=== PATIENT | female | born 1950 | race Caucasian/White ===

== ENCOUNTER 2022-02-20 12:01 | Inpatient (IN) | payer MEDICARE, MEDICAID ==
[~2022-02-20] VITALS: Ht 167.6 cm; Wt 57.3 kg
[2022-02-20 12:57] LABS: Basophils # (auto) 0.2 10 ^3/uL (0-0.2); Eosinophils # (auto) 0 10 ^3/uL (0-0.8); Hematocrit 34.8 % (36.0-46.0); Hemoglobin 11.4 g/dL (12.2-16.2); Lymphocytes # (auto) 1.3 10 ^3/uL (0.4-5.4); Lymphocytes % (auto) 8.3 % (10.0-50.0); Mean Corpuscular Hemoglobin 29.6 pg (28.0-32.0); Mean Corpuscular Hgb Conc. 32.8 g/dL (32.0-36.0); Mean Corpuscular Volume 90.3 fL (80.0-100.0); Monocytes % (auto) 6.4 % (0.0-12.0); Neutrophils # (auto) 13.3 10 ^3/uL (1.6-8.6); Neutrophils % (auto) 84.3 % (37.0-80.0); Red Blood Cells 3.86 10^6/uL (4.0-5.20); Red Cell Distribution Width 14.3 % (11.8-14.3); White Blood Cell 15.8 10^3/uL (4.4-10.8)
[2022-02-20 13:52] LABS: Alanine Aminotransferase 23 U/L (13-56); Alkaline Phosphatase 114 U/L (45-117); Anion Gap 12 (5-15); Aspartate Aminotransferase 21 U/L (15-37); BUN/Creatinine Ratio 15.9; Blood Urea Nitrogen 14 mg/dL (7-18); Carbon Dioxide 23 mmol/L (21-32); Chloride 104 mmol/L (98-107); GFR African American 82 mL/min; GFR Non-African American 68 mL/min; Glucose 107 mg/dL (74-106); Potassium 3.8 mmol/L (3.5-5.1); Sodium 139 mmol/L (136-145)
[2022-02-20 13:53] LABS: Albumin 3.7 g/dL (3.4-5.0); Bilirubin, Total 0.6 mg/dL (0.2-1.0); Calcium 8.4 mg/dL (8.5-10.1); Creatine Kinase IFCC 162 U/L (26-192); Total Protein 7.8 g/dL (6.4-8.2)
[2022-02-20 14:47] LABS: INR 0.95 (0.9-1.15)
[2022-02-20] MEDS ORDERED: traMADol HCL 50 MG TAB PO PRN (15:30)
[2022-02-20] MEDS ORDERED: ONDANSETRON HCL 4 MG/2 ML VIAL IV PRN (15:45)
[2022-02-20] MEDS ORDERED: DOCUSATE SOD 100 MG CAP PO PRN (15:45)
[2022-02-20] MEDS ORDERED: ACETAMINOPHEN 325 MG TAB PO PRN (15:45)
[2022-02-20] MEDS: HYDROcodone-ACET 5/325MG TAB PO PRN (15:53)
[2022-02-20 16:07] LABS: % Iron Saturation 14.7 % (15-50)
[2022-02-20 16:41] LABS: Urine Bacteria FEW /hpf (None Seen); Urine Blood 3+ /uL (Negative); Urine Specific Gravity 1.012 (1.001-1.035); Urine WBC 3 /hpf (0 - 5)
[2022-02-20] MEDS: HYDROmorphone HCL 2 MG/ML VL/or syr IV PRN ×2 (18:03→22:26)
[2022-02-20] MEDS ORDERED: cefTRIAXone 1GM/50ML D5W 50 ML IV ONE (19:45)
[2022-02-21 05:16] VITALS: BP 143/78
[2022-02-21] MEDS: HYDROcodone-ACET 5/325MG TAB PO PRN ×2 (06:37→18:16)
[2022-02-21 09:00] VITALS: BP 138/76
[2022-02-21] MEDS: HYDROmorphone HCL 2 MG/ML VL/or syr IV PRN ×2 (09:07→22:04)
[2022-02-21 14:00] VITALS: BP 159/83
[2022-02-21 17:00] VITALS: BP 157/77
[2022-02-21] MEDS ORDERED: hydrALAZINE HCL 20 MG/ML VL IV PRN (19:48)
[2022-02-21] MEDS: cefTRIAXone 1GM/50ML D5W 50 ML IV SCH (22:04)
[2022-02-21] MEDS: ATORVASTATIN 20 MG TAB PO SCH (22:04)
[2022-02-21 22:41] VITALS: BP 150/87
[2022-02-22] VITALS (14 sets, daily range): BP systolic 113–164; BP diastolic 64–104
[2022-02-22] MEDS: HYDROcodone-ACET 5/325MG TAB PO PRN ×2 (04:03→21:07)
[2022-02-22] MEDS ORDERED: BUPIVACAINE W/ EPINEPH 0.25% INJ 50ML MDV ONE (07:00)
[2022-02-22] MEDS ORDERED: TRANEXAMIC ACID 20 ML ONE (07:03)
[2022-02-22] MEDS ORDERED: KETOROLAC TROMETH 30 MG/ML 1ML VIAL ONE (07:05)
[2022-02-22] MEDS ORDERED: VANCOMYCIN HCL 1000 MG VL ONE (07:05)
[2022-02-22] MEDS ORDERED: ceFAZolin 1GM/50ML 100 ML IV ONE (07:23)
[2022-02-22] MEDS ORDERED: KETAMINE HCL 10 ML ONE (07:53)
[2022-02-22] MEDS ORDERED: MORPHINE SULF PF 5 MG/10 ML VIAL ONE (07:53)
[2022-02-22] MEDS ORDERED: fentaNYL CITRATE 100 MCG/2 ML VL ONE (07:53)
[2022-02-22] MEDS ORDERED: DexAMETHasone SOD PHOS 10MG/1ML VIAL INJ ONE (07:54)
[2022-02-22] MEDS ORDERED: PROPOFOL 10 MG/ML 20 ML IV ONE (07:54)
[2022-02-22] MEDS ORDERED: ONDANSETRON HCL 4 MG/2 ML VIAL ONE (07:54)
[2022-02-22] MEDS ORDERED: MIDAZOLAM HCL 2MG/2ML 2ml VIAL (1mg/ml) ONE (07:54)
[2022-02-22] MEDS ORDERED: GLYCOPYRROLATE 0.2 MG/ML 1ML VIAL ONE (07:54)
[2022-02-22] MEDS ORDERED: FAMOTIDINE (10MG/ML) 2ML VL IV ONE (07:58)
[2022-02-22] MEDS ORDERED: LACTATED RINGER'S 1,000 ML IV SCH (09:15)
[2022-02-22] MEDS ORDERED: ceFAZolin 1GM/50ML 50 ML IV SCH (09:15)
[2022-02-22] MEDS ORDERED: FAMOTIDINE (10MG/ML) 2ML VL IV PRN (10:45)
[2022-02-22] MEDS ORDERED: ONDANSETRON HCL 4 MG/2 ML VIAL IV PRN ×2 (10:45)
[2022-02-22] MEDS ORDERED: KETOROLAC TROMETH 30 MG/ML 1ML VIAL IV PRN (10:45)
[2022-02-22] MEDS ORDERED: NALOXONE HCL 0.4 MG/ML VIAL IV PRN (10:45)
[2022-02-22] MEDS ORDERED: KETOROLAC TROMETH 30 MG/ML 1ML VIAL IV ONE (10:45)
[2022-02-22] MEDS ORDERED: NALBUPHINE HCL 10 MG/1ml INJECTION SUBCUT PRN (10:45)
[2022-02-22] MEDS ORDERED: DexAMETHasone SOD PHOS 10MG/1ML VIAL INJ IV PRN (10:45)
[2022-02-22] MEDS ORDERED: BUPIVACAINE/DEXTROSE MPF 0.75% 2 ML AMP IT ONE (11:00)
[2022-02-22] MEDS: diphenhdrAMINE HCL 50 MG/1 ML VL IV PRN ×2 (11:07→21:08)
[2022-02-22] MEDS: ENOXAPARIN SOD 40 MG/0.4 ML SYRINGE SC SCH (13:24)
[2022-02-22] MEDS: METOPROLOL SUCCINATE XL 50 MG TAB PO SCH (13:24)
[2022-02-22] MEDS: SODIUM CHLOR 0.9% PF (SALINE LOCK) 10ML VIAL/SYR IV SCH ×2 (13:25→22:00)
[2022-02-22] MEDS: ceFAZolin 1GM/50ML 50 ML IV SCH ×2 (13:42→19:56)
[2022-02-22] MEDS: ATORVASTATIN 20 MG TAB PO SCH (21:07)
[2022-02-22] MEDS: cefTRIAXone 1GM/50ML D5W 50 ML IV SCH (21:09)
[2022-02-23] VITALS (15 sets, daily range): BP systolic 120–166; BP diastolic 61–78
[2022-02-23] MEDS: ceFAZolin 1GM/50ML 50 ML IV SCH (01:53)
[2022-02-23] MEDS: diphenhdrAMINE HCL 50 MG/1 ML VL IV PRN (01:59)
[2022-02-23] MEDS: HYDROcodone-ACET 5/325MG TAB PO PRN ×4 (02:10→21:53)
[2022-02-23] MEDS: SODIUM CHLOR 0.9% PF (SALINE LOCK) 10ML VIAL/SYR IV SCH ×3 (06:02→21:47)
[2022-02-23 09:37] LABS: Hemoglobin 8.8 g/dL (12.2-16.2)
[2022-02-23 10:00] LABS: Albumin 2.8 g/dL (3.4-5.0); Calcium 8.1 mg/dL (8.5-10.1); Potassium 3.8 mmol/L (3.5-5.1)
[2022-02-23 10:04] LABS: BUN/Creatinine Ratio 12.9; Bilirubin, Total 0.4 mg/dL (0.2-1.0); Total Protein 6.2 g/dL (6.4-8.2)
[2022-02-23] MEDS: ENOXAPARIN SOD 40 MG/0.4 ML SYRINGE SC SCH (10:44)
[2022-02-23] MEDS: METOPROLOL SUCCINATE XL 50 MG TAB PO SCH (10:45)
[2022-02-23] MEDS: cefTRIAXone 1GM/50ML D5W 50 ML IV SCH (21:47)
[2022-02-23] MEDS: ATORVASTATIN 20 MG TAB PO SCH (21:47)
[2022-02-24 05:00] VITALS: BP 151/70
[2022-02-24] MEDS: SODIUM CHLOR 0.9% PF (SALINE LOCK) 10ML VIAL/SYR IV SCH ×3 (05:30→21:27)
[2022-02-24] MEDS: HYDROcodone-ACET 5/325MG TAB PO PRN ×4 (05:44→21:27)
[2022-02-24 06:17] LABS: Hematocrit 25.2 % (36.0-46.0); Hemoglobin 8.7 g/dL (12.2-16.2)
[2022-02-24 09:00] VITALS: BP 128/62
[2022-02-24] MEDS: ENOXAPARIN SOD 40 MG/0.4 ML SYRINGE SC SCH (10:45)
[2022-02-24] MEDS: METOPROLOL SUCCINATE XL 50 MG TAB PO SCH (10:45)
[2022-02-24 13:00] VITALS: BP 148/60
[2022-02-24 16:43] VITALS: BP 134/56
[2022-02-24] MEDS ORDERED: ZOLPIDEM TARTRATE 5 MG TAB PO ONE (21:00)
[2022-02-24] MEDS: ATORVASTATIN 20 MG TAB PO SCH (21:27)
[2022-02-24] MEDS: cefTRIAXone 1GM/50ML D5W 50 ML IV SCH (21:27)
[2022-02-24 22:00] VITALS: BP 164/68
[2022-02-25] MEDS: HYDROcodone-ACET 5/325MG TAB PO PRN ×2 (04:58→11:35)
[2022-02-25 05:00] VITALS: BP 147/66
[2022-02-25 05:11] LABS: Hematocrit 24.7 % (36.0-46.0); Hemoglobin 8.6 g/dL (12.2-16.2)
[2022-02-25] MEDS: SODIUM CHLOR 0.9% PF (SALINE LOCK) 10ML VIAL/SYR IV SCH ×2 (05:33→14:18)
[2022-02-25 09:00] VITALS: BP_SYST 142; BP_SYST 167; BP_DIAS 68; BP_DIAS 75
[2022-02-25] MEDS ORDERED: RIVA10TA PO (09:23)
[2022-02-25] MEDS ORDERED: HYDR-4902 PO (09:23)
[2022-02-25] MEDS ORDERED: CIPR-173 PO (09:23)
[2022-02-25] MEDS: METOPROLOL SUCCINATE XL 50 MG TAB PO SCH (09:33)
[2022-02-25] MEDS: ENOXAPARIN SOD 40 MG/0.4 ML SYRINGE SC SCH (09:33)
[2022-02-25 11:27] VITALS: BP 141/72
[2022-02-25 13:00] VITALS: BP 136/66
[2022-03-08] MEDS ORDERED: ZOLP5TAB PO (14:34)
[2022-03-08] MEDS ORDERED: RIVA10TA PO (14:34)
[2022-03-15] MEDS ORDERED: TEMA30CA5 PO (08:54)
== END 2022-02-25 17:07 | disposition home health service (06) | DRG 522 ==
LOC: EDBD 12:01 → ER 12:18 → OVERFLOW 15:39 → CENTRAL 18:24 → TELE-CENTR 02-22 19:01
PROVIDERS: ADMIT Internal Medicine; ATTEND Family Medicine
PROC: 8E0W0CZ Robotic Assisted Procedure of Trunk Region, Open Approach (ICD-10-PCS; 2022-02-22)
PROC: 0SR90JZ Replacement of Right Hip Joint with Synthetic Substitute, Open Approach (ICD-10-PCS; principal; 2022-02-22 07:59)
DX: S72.001A Fracture of unspecified part of neck of right femur, initial encounter for closed fracture (principal); N39.0 Urinary tract infection, site not specified; D64.9 Anemia, unspecified; D72.829 Elevated white blood cell count, unspecified; R94.31 Abnormal electrocardiogram [ECG] [EKG]; Z96.641 Presence of right artificial hip joint; W01.0XXA Fall on same level from slipping, tripping and stumbling without subsequent striking against object, initial encounter; Y93.01 Activity, walking, marching and hiking; I10 Essential (primary) hypertension; Z20.822 Contact with and (suspected) exposure to COVID-19; Z88.6 Allergy status to analgesic agent; Y92.89 Other specified places as the place of occurrence of the external cause; Y99.8 Other external cause status
CPT/HCPCS: 36415; 70450; 71045; 72170; 73502; 80053; 81001; 82550; 82728; 83540; 83550; 84484; 85014; 85018; 85025; 85610; 86850; 86900; 86901; 87086; 87426; 93005; 93306; 97110; 97163; 97530; G0378; J0690; J0696; J1100; J1885; J2250; J2405; J2704; J3490